=== PATIENT | male | born 1995 | race Caucasian/White ===

== ENCOUNTER 2016-09-30 09:26 | Emergency (ER) | payer MEDICAID ==
--- NOTE | 2016-09-30 09:44 | ER Document Report ---
ED Medical Screen (RME) - General Chief Complaint: Chest Pain Stated Complaint: CHEST PAINS Time Seen by Provider: 09/30/16 09:41 Mode of Arrival: Ambulatory Information source: Patient TRAVEL OUTSIDE OF THE [place] IN LAST 30 DAYS: No - HPI Onset: Yesterday - LAST PM Onset/Duration: Sudden Quality of pain: Dull Severity: Mild Associated Symptoms: Cough (productive), Sweating. denies: Chills, Fever Exacerbated by: Walking Relieved by: Denies Similar symptoms previously: No Recently seen / treated by doctor: Yes - PCP, 2 d AGO, Rx FOR BRONCHITIS - Related Data Smoking: Non-smoker Frequency of alcohol use: None Drug Abuse: None, Other - DENIES CAFFEINE. No: Bath salts, Cocaine, Heroin, Marijuana, Methamphetamine Allergies/Adverse Reactions: No Known Allergies Allergy (Unverified 09/30/16 09:37) Past Medical History - General Information source: Patient - Social History Cigarette use (# per day): No Chew tobacco use (# tins/day): No Frequency of alcohol use: None Drug Abuse: None Renal/ Medical History: Denies: Hx Peritoneal Dialysis Review of Systems - Review of Systems Constitutional: Diaphoresis EENT: No symptoms reported Cardiovascular: See HPI Respiratory: See HPI Gastrointestinal: No symptoms reported Genitourinary: No symptoms reported Physical Exam - Vital signs Vitals: Temp Pulse Resp BP Pulse Ox 98.7 F 112 H 18 153/93 H 97 09/30/16 09:37 09/30/16 09:37 09/30/16 09:37 09/30/16 09:37 09/30/16 09:37 Interpretation: Hypertensive, Tachycardic Course - Vital Signs Vital signs: Temp Pulse Resp BP Pulse Ox 98.7 F 112 H 18 153/93 H 97 09/30/16 09:37 09/30/16 09:37 09/30/16 09:37 09/30/16 09:37 09/30/16 09:37
--- NOTE | 2016-09-30 10:03 | ER Document Report ---
ED Cardiac - General Chief Complaint: Chest Pain Stated Complaint: CHEST PAINS Time Seen by Provider: 09/30/16 09:41 Mode of Arrival: Ambulatory Information source: Patient Notes: 20 yo overweight non smoker, non htn, non dm,recent dx LURI on saturday taking prednisone [place] amoxicillin, male c/o dull constant right sided chest pain, sharper at times-wose when gets up to walk, that started at 2400 while reclined. Lasted all night, unable to sleep, sat on sofa but not has bad sitting up. Radiated to the left side when he went to xray in ER. No hx of this. Cough since saturday. No SOB. No n/v/d. No hx chest pain. No hx PE or DVT. Fhx: DM,HTN, great granddad [place]. Worse at this time leaning forward. TRAVEL OUTSIDE OF THE [place] IN LAST 30 DAYS: No - Related Data Allergies/Adverse Reactions: No Known Allergies Allergy (Unverified 09/30/16 09:37) Past Medical History - General Information source: Patient - Social History Smoking Status: Never Smoker Cigarette use (# per day): No Chew tobacco use (# tins/day): No Frequency of alcohol use: None Drug Abuse: None Lives with: Family Family History: DM, Hypertension Patient has suicidal ideation: No Patient has homicidal ideation: No - Medical History Medical History: Negative Renal/ Medical History: Denies: Hx Peritoneal Dialysis Past Surgical History: Reports: Hx Tonsillectomy Review of Systems - Review of Systems Constitutional: No symptoms reported EENT: See HPI Cardiovascular: See HPI Respiratory: See HPI Gastrointestinal: No symptoms reported Genitourinary: No symptoms reported Male Genitourinary: No symptoms reported Musculoskeletal: No symptoms reported Skin: No symptoms reported Hematologic/Lymphatic: No symptoms reported Neurological/Psychological: No symptoms reported Physical Exam - Vital signs Vitals: Temp Pulse Resp BP Pulse Ox 98.7 F 112 H 18 153/93 H 97 09/30/16 09:37 09/30/16 09:37 09/30/16 09:37 09/30/16 09:37 09/30/16 09:37 Interpretation: Hypertensive - mild, Tachycardic - General General appearance: Appears well, Alert In distress: None - HEENT Head: Normocephalic, Atraumatic Eyes: Normal Conjunctiva: Normal Pupils: PERRL Nasal: Other - congested nose Mouth/Lips: Normal Mucous membranes: Normal Pharynx: Normal Neck: Supple. No: Lymphadenopathy, Thyromegally - Respiratory Respiratory status: No respiratory distress Chest status: Nontender Breath sounds: Normal Chest palpation: Normal - Cardiovascular Rhythm: Regular Heart sounds: Normal auscultation Murmur: No - Abdominal Inspection: Normal Distension: No distension Bowel sounds: Normal Tenderness: Nontender Organomegaly: No organomegaly - Back Back: Normal, Nontender - Extremities General upper extremity: Normal inspection, Nontender, Normal color, Normal ROM , Normal temperature General lower extremity: Normal inspection, Nontender, Normal color, Normal ROM , Normal temperature, Normal weight bearing. No: Kemi's sign - Neurological Neuro grossly intact: Yes Cognition: Normal Orientation: AAOx4 [place] Coma Scale Eye Opening: Spontaneous [place]ylie Coma Scale Verbal: Oriented Kylie Coma Scale Motor: Obeys Commands Kylie Coma Scale Total: 15 Speech: Normal Motor strength normal: LUE, RUE, LLE, RLE Sensory: Normal - Psychological Associated symptoms: Normal affect, Normal mood - Skin Skin Temperature: Warm Skin Moisture: Dry Skin Color: Normal Skin irregularity: negative: Rash Course - Re-evaluation Re-evalutation: 09/30/16 11:12 Labs are negative including a d-dimer. Discussed the case with Dr. Singletary. Albuterol nebulizer did not change the symptom. The patient is reclined with a congested cough. I will send him home with a albuterol metered-dose inhaler for follow-up with the primary care doctor tomorrow. 09/30/16 11:27 lungs still clear. understands instructions, mom in room as well for instructions. he will f/u with his md tomorrow - Vital Signs Vital signs: Temp Pulse Resp BP Pulse Ox 98.7 F 112 H 25 H 143/83 H 100 09/30/16 09:37 09/30/16 09:37 09/30/16 11:01 09/30/16 11:01 09/30/16 11:01 - Laboratory Result Diagrams: 09/30/16 09:50 09/30/16 09:50 Laboratory results interpreted by me: 09/30/16 09/30/16 09/30/16 09:50 09:50 09:50 WBC 12.6 H Seg Neutrophils % 80.2 H Lymphocytes % 11.0 L Absolute Neutrophils 10.1 H Glucose 144 H ALT 64 H Urine Glucose (UA) 50 H Discharge - Discharge Clinical Impression: Right-sided chest pain, Cough, Elevated blood pressure reading, Elevated pulse rate, Liver enzyme elevation, Elevated glucose level Condition: Good Disposition: HOME, SELF-CARE Instructions: Chest Pain of Unclear Cause ([facility]), Inhaled Bronchodilators ([facility]) , Upper Respiratory Illness ([facility]), Liver Function Abnormality ([facility]), High Blood Pressure ([facility]) Additional Instructions: drink plenty of fluids continue the prednisone albuterol meter dose inhaler for the cough and congestio warm compress to chest may help to er if symptoms worsen see your doctor tommorrow for follow up, recheck your liver enzyme in 2 weeks, blood pressure readings, and glucose. copy of labs given to you Please complete the patient satisfaction survey if you get one, and return it.. If you do not receive a survey, then you can go to the [facility] website, [email or web address] and place your comments about your very good care. Thank you very much. It was a pleasure being your medical provider today. Prescriptions: Albuterol Sulfate [Proair HFA Inhalation Aerosol 8.5 gm MDI] 2 puff IH Q3HP PRN #1 [email or web address] PRN Reason: Forms: Return to Work
[2016-09-30 10:08] LABS: ABSOLUTE BASOPHILS # (AUTO) 0.1 10^3/uL (0.0-0.2); ABSOLUTE EOSINOPHILS # (AUTO) 0.1 10^3/uL (0.0-0.6); ABSOLUTE LYMPHOCYTES (AUTO) 1.4 10^3/uL (0.5-4.7); ABSOLUTE MONOCYTES (AUTO) 0.9 10^3/uL (0.1-1.4); ABSOLUTE NEUT (AUTO) 10.1 10^3/uL (1.7-8.2); BASOPHILS % (AUTO) 0.5 % (0-2); EOSINOPHILS % (AUTO) 0.8 % (0-6); HEMATOCRIT 44.5 % (37.9-51.0); HEMOGLOBIN 14.8 g/dL (13.5-17.0); HGB HCT DIFFERENCE -0.1; MEAN CORPUSCULAR HEMOGLOBIN 28.4 pg (27.0-33.4); MEAN CORPUSCULAR HGB CONC 33.3 g/dL (32.0-36.0); MEAN CORPUSCULAR VOLUME 86 fl (80-97); MONOCYTES % (AUTO) 7.5 % (3-13); RED BLOOD COUNT 5.21 10^6/uL (4.35-5.55); RED CELL DISTRIBUTION WIDTH 13.7 % (11.5-14.0); SEGMENTED NEUTROPHILS % (AUTO) 80.2 % (42-78); WHITE BLOOD COUNT 12.6 10^3/uL (4.0-10.5)
[2016-09-30 10:11] LABS: APPEARANCE,URINE CLEAR; BILIRUBIN,URINE NEGATIVE (NEGATIVE); GLUCOSE, URINE 50 mg/dL (NEGATIVE); KETONES,URINE NEGATIVE (NEGATIVE); LEUKOCYTE ESTERASE,URINE NEGATIVE (NEGATIVE); NITRITE,URINE NEGATIVE (NEGATIVE); PROTEIN,URINE NEGATIVE (NEGATIVE); UROBILINOGEN,URINE NEGATIVE mg/dL (<2.0)
--- NOTE | 2016-09-30 10:14 | RADIOLOGY REPORT (SQ) ---
EXAM DESCRIPTION: CHEST PA/LAT COMPLETED DATE/TIME: 09/30/2016 10:05 am REASON FOR STUDY: CHEST PAIN COMPARISON: None. EXAM PARAMETERS: NUMBER OF VIEWS: two views TECHNIQUE: Digital Frontal and Lateral radiographic views of the chest acquired. RADIATION DOSE: NA LIMITATIONS: none FINDINGS: LUNGS AND PLEURA: No opacities, masses or pneumothorax. No pleural effusion. MEDIASTINUM AND HILAR STRUCTURES: No masses or contour abnormalities. HEART AND VASCULAR STRUCTURES: Heart normal size. No evidence for failure. BONES: No acute findings. HARDWARE: None in the chest. OTHER: No other significant finding. IMPRESSION: NO SIGNIFICANT RADIOGRAPHIC FINDING IN THE CHEST. TECHNICAL DOCUMENTATION: JOB ID: [id number] [employer]- All Rights Reserved
[2016-09-30 10:24] LABS: URINE BARBITURATES SCREEN NEGATIVE; URINE METHADONE SCREEN NEGATIVE; URINE OPIATES LOW NEGATIVE; URINE PHENCYCLIDINE SCREEN NEGATIVE
[2016-09-30 10:25] LABS: ALANINE AMINOTRANSFERASE 64 U/L (10-40); ALBUMIN 4.3 g/dL (3.7-5.6); ALKALINE PHOSPHATASE 68 U/L (65-260); ANION GAP 12 (5-19); ASPARTATE AMINO TRANSFERASE 26 U/L (10-45); BILIRUBIN,DIRECT 0.4 mg/dL (0.0-0.4); BILIRUBIN,TOTAL 0.6 mg/dL (0.2-1.3); BLOOD UREA NITROGEN 10 mg/dL (7-20); CALCIUM 9.3 mg/dL (8.4-10.2); CARBON DIOXIDE 24 mmol/L (22-30); CHLORIDE 102 mmol/L (98-107); CREATINE KINASE 74 U/L (55-170); CREATININE RESULT 0.73 mg/dL (0.52-1.25); GLUCOSE 144 mg/dL (75-110); POTASSIUM 4.4 mmol/L (3.6-5.0); SODIUM 138.2 mmol/L (137-145); TOTAL PROTEIN 7.5 g/dL (6.3-8.2)
[2016-09-30] MEDS ORDERED: ASPIRIN 81 MG TABLET, CHEWABLE PO ONE (10:26)
[2016-09-30] MEDS ORDERED: ALBUTEROL SULFATE 0.083% NEB 2.5 MG/3 ML AMPUL NEB ONE (10:27)
[2016-09-30 10:40] LABS: CREATINE KINASE MB 0.65 ng/mL (<4.55); TROPONIN I 0.021 ng/mL
[2016-09-30 11:11] VITALS: BP 143/83
--- NOTE | 2016-09-30 14:05 | EKG REPORT ---
SEVERITY:- BORDERLINE ECG - SINUS TACHYCARDIA BORDERLINE T ABNORMALITIES, INFERIOR LEADS : Confirmed by: Sang Mena MD 30-Sep-2016 14:04:57
== END 2016-09-30 11:40 | disposition home or self-care (01) ==
LOC: ER 09:26
DX: R07.9 Chest pain, unspecified (principal); R74.8 Abnormal levels of other serum enzymes; R73.9 Hyperglycemia, unspecified; R05 Cough; R03.0 Elevated blood-pressure reading, without diagnosis of hypertension
CPT/HCPCS: 36415; 71020; 80053; 80307; 81001; 82550; 82553; 84443; 84484; 85025; 85379; 93005; 93010; 94640; 99285